=== PATIENT | male | born 1975 | race Caucasian/White ===

== ENCOUNTER 2018-04-21 10:59 | Emergency (ER) | payer BC, OTHER ==
[2018-04-21 11:48] LABS: #Eosinphils 0.1 thou/uL (0.0-0.7); #Lymphocytes 1.7 thou/uL (1.20-3.40); #Monocytes 0.4 thou/uL (0.11-0.59); #Neutrophils 3.2 thou/uL (1.40-6.50); %Basophils 0.6 % (0.0-1.0); %Eosinophils 2.3 % (0.0-10.0); %Lymphocytes 30.8 % (21.0-51.0); %Monocytes 7.5 % (0.0-10.0); %Neutrophils 58.8 % (42.0-75.0); Hemoglobin 15.7 g/dL (14.0-18.0); Mean Corpuscular HGB CONC 33.3 g/dL (32.0-36.0); Mean Corpuscular Hemoglobin 28.6 pg (27.0-31.0); Mean Corpuscular Volume 85.8 fL (78.0-98.0); Mean Platelet Volume 7.6 fL (7.4-10.4); Platelet Count 242 thou/uL (130-400); RBC Distribution Width 11.7 % (11.5-14.5); Red Blood Cell (RBC) Count 5.48 mill/uL (4.70-6.10); White Blood Cell (WBC) Count 5.5 thou/uL (4.8-10.8)
--- NOTE | 2018-04-21 12:00 | RAD ---
CHEST 1 VIEW: Date: HISTORY: Chest pain. FINDINGS: Heart size and mediastinum are within normal limits. Lungs are clear of any infiltrative process. No significant bony findings. IMPRESSION: No active intrathoracic disease. POS: [facility]
[2018-04-21 12:16] LABS: ALT (SGPT) 27 U/L (8-55); AST (SGOT) 27 U/L (5-34); Albumin 4.6 g/dL (3.5-5.0); Alkaline Phosphatase 90 U/L (40-150); Anion Gap 15 mmol/L (10-20); BUN (Urea Nitrogen) 9 mg/dL (8.9-20.6); Bilirubin, Total 0.5 mg/dL (0.2-1.2); CK (CPK) 147 U/L (30-200); Calc. Creatinine Clearance 0 mL/min (70-130); Calcium 9.5 mg/dL (7.8-10.44); Carbon Dioxide 20 mmol/L (22-29); Chloride 107 mmol/L (98-107); Estimated GFR-MDRD Greater than 90; Globulin 3.4 g/dL (2.4-3.5); Glucose 87 mg/dL (70-105); Lipase 46 U/L (8-78); Potassium 4.5 mmol/L (3.5-5.1); Sodium 137 mmol/L (136-145)
--- NOTE | 2018-04-23 15:12 | EKG ---
Test Reason : NUMB Blood Pressure : / mmHG Vent. Rate : 066 BPM Atrial Rate : 066 BPM P-R Int : 172 ms QRS Dur : 088 ms QT Int : 364 ms P-R-T Axes : 032 056 031 degrees QTc Int : 381 ms Normal sinus rhythm Normal ECG Confirmed by AAMIR PORRAS, EMELIA Sy ([id number]), editor map BERNARDA SHARP ([id number]) on 04/23/2018 3:11:45 PM Referred By: Confirmed By:EMELIA RUTLEDGE MD
== END 2018-04-21 12:57 | disposition home or self-care (01) ==
LOC: ERS 10:59
DX: R07.89 Other chest pain (principal); R05 Cough; F17.290 Nicotine dependence, other tobacco product, uncomplicated
CPT/HCPCS: 71045; 80053; 82550; 83690; 83880; 84484; 85025; 93005

== ENCOUNTER 2021-04-03 14:21 | Outpatient (CLI) | payer OTHER | END 2021-04-03 14:22 | disposition home or self-care (01) | LOC: TBSIIMAG 14:21 | PROVIDERS: ATTEND Oral & Maxillofacial Surgery | DX: M26.603 Bilateral temporomandibular joint disorder, unspecified (principal) | CPT/HCPCS: 70336 ==